=== PATIENT | female | born 1950 | race Caucasian/White ===

== ENCOUNTER → 2016-11-15 17:19 | Outpatient (CLI) | payer MEDICARE, BC | END | disposition home or self-care (01) | LOC: D.MAMMO 14:30 | DX: Z12.31 Encounter for screening mammogram for malignant neoplasm of breast (principal) ==

== ENCOUNTER → 2021-01-26 08:31 | Outpatient (CLI) | payer MEDICARE | END | disposition home or self-care (01) | LOC: D.US 01-25 08:30 | PROVIDERS: ATTEND Nurse Practitioner | DX: R10.12 Left upper quadrant pain (principal); R10.11 Right upper quadrant pain ==